=== PATIENT | male | born 1990 | race Caucasian/White ===

== ENCOUNTER → 2021-02-06 | Outpatient (CLI) | payer OTHER ==
[~2021-02-06] MED LIST: BACTRIM DS TAB1 EACH PO; CLEOCIN HCL300 MG PO; KEFLEX CAP 500500 MG PO; NAPROSYN500 MG PO
== END ==
LOC: KOH-I 13:49
DX: M54.2 Cervicalgia (principal); M25.512 Pain in left shoulder; R10.30 Lower abdominal pain, unspecified
CPT/HCPCS: 72125; 72170; 73030